=== PATIENT | male | born 1985 | race Caucasian/White ===

== ENCOUNTER 2016-06-20 16:12 | Emergency (ER) | payer OTHER ==
[~2016-06-20] VITALS: Ht 177.8 cm; Wt 92.2 kg
[~2016-06-20 16:12] MED LIST: GUAI1TAB55 PO
[2016-06-20 16:25] VITALS: Ht 177.8 cm; Wt 92.2 kg
[2016-06-20] MEDS ORDERED: KETOROLAC TROMETHAMINE 30 MG/ML VIAL IV STA (16:52)
[2016-06-20] MEDS ORDERED: BUSP5TAB59 PO (16:54)
[2016-06-20] MEDS ORDERED: FLUT0.15 NAE (16:54)
[2016-06-20] MEDS ORDERED: LORA-741 PO (16:54)
[2016-06-20] MEDS ORDERED: AMOX250C3 PO (16:54)
[2016-06-20] MEDS ORDERED: OPTIRAY 320 IV PRN (17:00)
[2016-06-20 17:12] LABS: BASO % 0.3 %; BASO ABS # 0.01 K/uL (0-0.2); COMPLETE YES; EOS % 7.8 %; HEMATOCRIT 40.5 % (42-52); IG% 0.3 %; LYMPH % 39.6 %; LYMPH ABS # 1.53 K/uL (1.2-3.4); MEAN CELL VOLUME 85.4 fL (80-100); MEAN CORPUSCULAR HEMOGLOBIN 30.2 pg (25-34); MEAN CORPUSCULAR HGB CONC 35.3 g/dl (32-36); MEAN PLATELET VOLUME 9.1 fL (7.4-10.4); MONO % 6.2 %; NEUT % 45.8 %; PLATELET COUNT 255 K/uL (130-400); RED BLOOD COUNT 4.74 M/uL (4.7-6.1); WHITE BLOOD COUNT 3.86 K/uL (4.8-10.8)
[2016-06-20 17:29] LABS: CALCIUM 9.1 mg/dl (8.5-10.1); CREATININE 0.94 mg/dl (0.60-1.40)
--- NOTE | 2016-06-20 20:09 | DIAGNOSTIC IMAGING REPORT ---
CT SOFT TISSUE NECK WITH CT DOSE: 516.22 mGy.cm CLINICAL HISTORY: Sensation of throat swelling. TECHNIQUE: Axial images of the neck were obtained following intravenous injection of 115 cc of Optiray 320 IV. COMPARISON STUDY: None. FINDINGS: Visualized portions of the intracranial contents are unremarkable. There are are several opacified left mastoid air cells and a few opacified right mastoid air cells. The orbits are unremarkable. There is moderate mucosal thickening of the left maxillary sinus which contains a small air-fluid level. There is moderate mucosal thickening of the ethmoid sinuses and mild mucosal thickening of the right maxillary and sphenoid sinuses. The epiglottis is normal. No mucosal lesion is identified although these may be occult by CT. No abnormality is identified within the parotid, submandibular or thyroid gland. Lung apices are clear. Visualized portions of the airway are patent. No abscess or lymphadenopathy is identified. IMPRESSION: 1. No acute process within the neck by CT. No abscess or lymphadenopathy. 2. No mucosal lesion identified although these may be occult by CT. If persistent sensation of throat swelling, this could be correlated with direct visualization. 3. Sinus mucosal thickening with a left maxillary sinus air-fluid level. The findings may reflect acute left maxillary sinusitis. 3. A few opacified bilateral mastoid air cells. Electronically signed by: Jonathon Allen M.D. 06/20/2016 8:08 PM Dictated Date/Time: 06/20/2016 8:01 PM
[2016-06-20] MEDS ORDERED: METH4PAK PO (20:21)
[2016-06-20 20:41] VITALS: BP 132/77; PULSE 61; TEMP 36.9; O2SAT 100
--- NOTE | 2016-06-21 23:59 | EMERGENCY ROOM VISIT NOTE ---
ED Visit Note First contact with patient: 16:30 Chief Complaint: I feel like my throat is swollen and every time I swallow I feel like there is a rock in the back of my throat. History of Present Illness: Mr. Keller is a 31-year-old white male who ambulates into the ED accompanied by female friend complaining of sensations of throat swelling and possible foreign body in his throat. Patient reports he has a history of anxiety. He also chews tobacco. Approximately one year ago he stopped chewing tobacco and had an increase in his anxiety which was uncontrollable with medication so he went back to chewing tobacco. Patient reports for the last 10 weeks he has been having drainage from his sinuses. He feels this drainage is causing sensations of throat swelling. He has seen his primary care physician who started him on Flonase and amoxicillin last week and has had no relief of his symptoms. He goes on to report the last few days when he swallows he feels like there is a long in his throat. He expresses concerns for throat cancer. Currently he rates his discomfort with swallowing 8/10. The pain is nonradiating. The pain only occurs with swallowing. He has not identified any alleviating factors rated to this pain. He has not taken any medication for this pain prior to arrival at the hospital. Associated with his symptoms he reports she's been having increasing anxiety and has been using his Ativan without relief of his anxiety. He denies fevers, chills, sweats, skin eruptions, skin color changes, hearing changes, inability to swallow, voice changes, stridor, cough, wheezing, shortness of breath, neck pain/stiffness, abdominal pain, decreased appetite, nausea, vomiting. Review of Systems: As noted above in history of present illness. All body systems were reviewed and found to be negative as noted above. Past Medical History: As previously noted, bronchitis, status post appendectomy. Current Medications: Flonase, Ativan, amoxicillin, buspirone. Allergies to Medications: Cyclobenzaprine, Social History: Patient is currently employed; he feels safe in his home environment; he admits to oral tobacco use Physical Examination: Vital Signs: Date Time Temp Pulse Resp B/P Pulse Ox O2 Delivery O2 Flow Rate FiO2 06/20/16 20:41 36.9 61 16 132/77 100 06/20/16 20:40 61 16 132/77 100 Room Air 06/20/16 19:30 61 16 138/72 100 06/20/16 17:05 88 20 131/73 100 Room Air 06/20/16 16:25 36.9 92 20 129/75 100 Room Air GENERAL: 31-year-old male in mild distress due to pain, nontoxic-appearing, afebrile and hemodynamically stable. NEUROLOGICAL: Awake, alert and oriented to person, place and time. Answering questions appropriately and following commands. Normal gait. Good hand eye coordination. No focal motor sensory deficits. SKIN: Warm, dry and pink. No soft tissue eruptions or trauma noted. HEENT: Atraumatic and normocephalic. PERRLA. Sclera white and conjunctiva pink. No drainage from naris, but audible congestion. Oral cavity moist and pink. Uvula is midline and no abscesses are seen. Pharynx is nonerythematous or edematous. No tonsillar hypertrophy or exudates. There is noted a small amount of postnasal drainage in the back of the throat. Speech normal and clear. No lymphadenopathy. Trachea midline. No jugular venous distention. No laryngeal tenderness. No auditory or auscultatory stridor. BACK: No tenderness over the bony cervical or thoracic spine. Full range of motion of the cervical spine. No nuchal rigidity or meningismus. No CVA tenderness. THORAX: Lungs sounds are clear to auscultation and equal bilaterally with symmetrical chest wall. No wheezing, rales or rhonchi. HEART: Regular rate and rhythm. No gallops, rubs or murmurs are appreciated. ABDOMEN: Flat, soft and nontender. Positive bowel sounds in all quadrants. No guarding, rigidity or organomegaly. EXTREMITIES: Moves all extremities well on command and with purpose. All distal neurovascular statuses are intact and equal bilaterally. No calf tenderness or cords. ED Course: Patient is assessed as noted above. Laboratory Testing: Test 06/20/16 17:03 Range/Units White Blood Count 3.86 4.8-10.8 K/uL Red Blood Count 4.74 4.7-6.1 M/uL Hemoglobin 14.3 14.0-18.0 g/dL Hematocrit 40.5 42-52 % Mean Corpuscular Volume 85.4 80-100 fL Mean Corpuscular Hemoglobin 30.2 25-34 pg Mean Corpuscular Hemoglobin Concent 35.3 32-36 g/dl Platelet Count 255 130-400 K/uL Mean Platelet Volume 9.1 7.4-10.4 fL Neutrophils (%) (Auto) 45.8 % Lymphocytes (%) (Auto) 39.6 % Monocytes (%) (Auto) 6.2 % Eosinophils (%) (Auto) 7.8 % Basophils (%) (Auto) 0.3 % Neutrophils # (Auto) 1.77 1.4-6.5 K/uL Lymphocytes # (Auto) 1.53 1.2-3.4 K/uL Monocytes # (Auto) 0.24 0.11-0.59 K/uL Eosinophils # (Auto) 0.30 0-0.5 K/uL Basophils # (Auto) 0.01 0-0.2 K/uL RDW Standard Deviation 39.5 36.4-46.3 fL RDW Coefficient of Variation 12.5 11.5-14.5 % Immature Granulocyte % (Auto) 0.3 % Immature Granulocyte # (Auto) 0.01 0.00-0.02 K/uL Sodium Level 144 136-145 mmol/L Potassium Level 4.0 3.5-5.1 mmol/L Chloride Level 107 98-107 mmol/L Carbon Dioxide Level 26 21-32 mmol/L Anion Gap 11.0 3-11 mmol/L Blood Urea Nitrogen 9 7-18 mg/dl Creatinine 0.94 0.60-1.40 mg/dl Est Creatinine Clear Calc Drug Dose 132.3 ml/min Estimated GFR () 126.5 Estimated GFR (Non- 109.1 BUN/Creatinine Ratio 10.0 10-20 Random Glucose 94 70-99 mg/dl Calcium Level 9.1 8.5-10.1 mg/dl Soft Tissue Neck CT: Was reviewed by myself and read by the radiologist showing no acute process within the neck; no abscesses or lymphadenopathy. Sinus mucosal thickening of the left maxillary sinus with air fluid level and a few opacified bilateral mastoid air cells. An IV lock was initiated. Patient was given 30 mg of Toradol IV for pain. Patient was reassessed multiple times during his stay in the emergency department. Patient's case was reviewed with Dr. Campos; we agreed on diagnostic approach , treatment, disposition and plan. Patient was educated about tonight's findings and instructed on his treatment plan; he verbalizes understanding and agreement with this plan. Clinical Impression: Sinusitis. Sensations of throat swelling. Disposition: Patient discharged home in stable condition; prior to departure he was reassessed and subjectively reported he was feeling better and rated his discomfort 3/10. Plan: Patient was encouraged to continue his current medications as prescribed. Patient was encouraged to alternate ibuprofen and acetaminophen as needed for pain every 3 hours. Patient was prescribed a Medrol Dosepak and instructed on achieves for inflammation. Patient was encouraged to consider using a liquid or mechanical soft diet until resolution of throat discomfort. Patient was encouraged to follow-up with family physician for recheck and possible referral to ENT specialist. Patient was encouraged return to the ED for uncontrolled pain, fevers, inability to swallow, voice changes, drooling or any new/concerning symptoms.
== END 2016-06-20 20:42 | disposition home or self-care (01) ==
LOC: C.EDB 16:14 → C.EDD 20:42
DX: J32.9 Chronic sinusitis, unspecified (principal); R22.1 Localized swelling, mass and lump, neck; F17.220 Nicotine dependence, chewing tobacco, uncomplicated; Z79.899 Other long term (current) drug therapy